=== PATIENT | female | born 1970 | race American Indian/Alaskan Native ===

== ENCOUNTER 2016-10-09 14:53 | Emergency (ER) | payer OTHER ==
[2016-10-09 15:27] VITALS: BP 157/83; PULSE 82; RESP 18; TEMP 98; O2SAT 99
[2016-10-09] MEDS ORDERED: Oxycodone/Acetaminophen 5/325 mg Tab PO STA (16:09)
--- NOTE | 2016-10-09 16:14 | ED PDOC ---
HPI: Back Time Seen by Provider: 10/09/16 15:44 Chief Complaint (Nursing): Back Pain Chief Complaint (Provider): Lower back pain History Per: Patient History/Exam Limitations: no limitations Additional Complaint(s): Franny Barrett, a 46 year old female, presents to the ED complaining of left lower back pain. The patient states that she was seen in orthopedics today and had Xrays done and was sen for an MRI. She states she was not given anything for pain. Past Medical History Reviewed: Historical Data, Nursing Documentation, Vital Signs Vital Signs: Last Vital Signs Temp 98 F 10/09/16 15:24 Pulse 82 10/09/16 15:24 Resp 18 10/09/16 15:24 BP 157/83 H 10/09/16 15:24 Pulse Ox 99 10/09/16 15:24 - Medical History PMH: HTN - Surgical History Surgical History: No Surg Hx - Family History Family History: States: Unknown Family Hx - Social History Current smoker - smoking cessation education provided: No Alcohol: None Drugs: Denies - Home Medications Home Medications: Ambulatory Orders Medication Instructions Recorded oxyCODONE/Acetaminophen [Percocet 1 ea PO Q6H PRN #15 tab 10/09/16 5/325 mg Tab] - Allergies Allergies/Adverse Reactions: Allergies Allergy/AdvReac Type Severity Reaction Status Date / Time No Known Allergies Allergy Verified 10/09/16 15:24 Review of Systems Musculoskeletal: Positive for: Back Pain (Left lower back pain.) Physical Exam - Reviewed Nursing Documentation Reviewed: Yes Vital Signs Reviewed: Yes - Physical Exam Appears: Positive for: Non-toxic, No Acute Distress Head Exam: Positive for: NORMAL INSPECTION Skin: Positive for: Normal Color, Warm, Dry Eye Exam: Positive for: Normal appearance, EOMI, PERRL Cardiovascular/Chest: Positive for: Regular Rate, Rhythm, Chest Non Tender. Negative for: Bradycardia, Tachycardia Respiratory: Positive for: Normal Breath Sounds. Negative for: Wheezing, Respiratory Distress Back: Positive for: Normal Inspection. Negative for: L CVA Tenderness, R CVA Tenderness, Vertebral Tenderness Neurologic/Psych: Positive for: Alert, Oriented, Gait - ECG O2 Sat by Pulse Oximetry: 99 (RA) Pulse Ox Interpretation: Normal Medical Decision Making Medical Decision Makin Initial Impression: 46 year old female presenting with left lower back pain Initial Plan: * Percocet 1 tab PO * Reevaluation Pt asks for a "shot of demerol" instead of "taking a pill". Scribe Attestation Documented by Kari Deutsch acting as a scribe for Akanksha Calle PA-C. Scribe Attestation All medical record entries made by the Scribe were at my direction and personally dictated by me. I have reviewed the chart and agree that the record accurately reflects my personal performance of the history, physical exam, medical decision making, and the department course for this patient. I have also personally directed, reviewed, and agree with the discharge instructions and disposition. Disposition - Clinical Impression Clinical Impression: Back pain - Patient ED Disposition Is Patient to be Admitted: No Counseled Patient/Family Regarding: Diagnosis, Need For Followup, Rx Given - Disposition Disposition: Routine/Home Disposition Time: 16:26 Condition: GOOD Prescriptions: oxyCODONE/Acetaminophen [Percocet 5/325 mg Tab] 1 ea PO Q6H PRN #15 tab PRN Reason: Pain, Severe (8-10) Instructions: Back Pain (ED)
[2016-10-09] MEDS ORDERED: Oxycodone/Acetaminophen 5/325 mg Tab ONE (16:26)
== END 2016-10-09 16:44 | disposition home or self-care (01) ==
LOC: H.ER 14:53
DX: M54.9 Dorsalgia, unspecified (principal)